=== PATIENT | female | born 1965 | race Caucasian/White ===

== ENCOUNTER → 2016-10-12 | Outpatient (CLI) | payer OTHER ==
[~2016-10-12] MED LIST: ALBUTEROL 0.5ML INH; ALBUTEROL17 GM INH; ATENOLOL PO; BENADRYL PO; FLEXERIL PO; FLONASE16 GM; MOBIC PO; SYNTHROID PO
== END | disposition home or self-care (01) ==
LOC: CCAT 13:00 → CECH 13:46
DX: R60.0 Localized edema (principal); I37.1 Nonrheumatic pulmonary valve insufficiency
CPT/HCPCS: 93306

== ENCOUNTER → 2016-11-03 | Outpatient (CLI) | payer OTHER ==
--- NOTE | ~2016-11-03 | CT57 ---
[facility]. [facility] A Service of [facility] [place] & [facility] RADIOLOGY TEXT RESULTS PATIENT: FABIAN COUGHLIN LOCATION: [facility] : 63 UNIT #: [id number] AGE: [address]: Nima Monroe MD SEX: F ORDER DR: [id number] [facility] [address] [place], [place] [address] [id number] O MR#: [id number] [facility] #: [id number] NAME: FABIAN COUGHLIN : 1965 SEX: F STUDY DATE/TIME: 11/03/2016 16:08 UNIT: [facility] ROOM: STUDY DESCRIPTION: CT Chest Wo Cont Attending Physician: Nima Monroe M.D. Referring Physician: Nima Monroe M.D. Ordering Physician: Nima Monroe M.D. Primary Care Physician: Karen Piper M.D. MEDICAL IMAGING REPORT This report is preliminary unless electronic signature is present EXAM CT chest without IV contrast COMPARISON High-resolution CT chest dated August 08, 2013. HISTORY 51-year-old female with dyspnea for 2 years, recently worsening. History of COPD. TECHNIQUE Axial CT imaging of the chest was performed with IV contrast. Lack of IV contrast limits evaluation of adenopathy, vasculature and viscera. Coronal and sagittal reformats were constructed. This CT exam was performed with one or more of the following radiation dose reduction techniques: automatic exposure control, adjustment of mA and/or kV according to patient size, and iterative reconstruction. FINDINGS No acute fractures or suspicious osseous lesions. Airways are widely patent. No pneumothorax, pleural effusion or consolidative pneumonia. Normal heart size. Minimal left-sided coronary artery calcifications. Trace pericardial fluid, possibly physiologic. Normal caliber of the thoracic aorta and pulmonary artery. Mild calcification involving the brachiocephalic artery origin. No visible adenopathy. Punctate non-obstructive calculus in superior pole of the left kidney. Mild centrilobular emphysema is grossly unchanged from July 2013. IMPRESSION 1. No acute abnormality of the chest or upper abdomen. 2. Mild centrilobular emphysema is likely stable. No evidence of STS. [facility] A Service of [facility] [place] & [facility] RADIOLOGY TEXT RESULTS PATIENT: FABIAN COUGHLIN LOCATION: [facility] : 63 UNIT #: [id number] AGE: [address]: Nima Monroe MD SEX: F ORDER DR: interstitial lung disease or acute pneumonia. 3. Punctate non-obstructive calculus superior pole of the left kidney. 4. Minimal scattered multi-vessel coronary artery calcifications. Dictated by... Nick Mark M.D. THIS IS AN ELECTRONICALLY VERIFIED REPORT Nick Mark M.D. at 11/06/2016 9:02 AM BLM/pcl TD: 11/04/2016 18:16 JOB #: [id number] MEDICAL IMAGING REPORT Page 1 of 1 COPY
== END | disposition home or self-care (01) ==
LOC: CCAT 13:00
DX: R06.00 Dyspnea, unspecified (principal); J43.2 Centrilobular emphysema; N20.0 Calculus of kidney
CPT/HCPCS: 71250